=== PATIENT | female | born 2005 | race Two or more races ===

== ENCOUNTER 2024-02-13 14:50 | Outpatient (CLI) | payer OTHER ==
[~2024-02-13] VITALS: Ht 162.6 cm; Wt 62.5 kg
[~2024-02-13 14:50] MED LIST: PRENMIS3 PO; UNIS25TA3 PO
[2024-02-13] MEDS ORDERED: ACET325C5 PO (15:09)
[2024-02-13 15:16] VITALS: BP 110/59
[2024-02-13 16:24] VITALS: BP 111/64
== END 2024-02-13 16:56 | disposition home or self-care (01) ==
LOC: M LDO 14:50
PROVIDERS: ATTEND Advanced Practice Midwife
DX: O36.5939 Maternal care for other known or suspected poor fetal growth, third trimester, other fetus (principal); O41.93X9 Disorder of amniotic fluid and membranes, unspecified, third trimester, other fetus; Z3A.35 35 weeks gestation of pregnancy; Z88.0 Allergy status to penicillin; Z88.1 Allergy status to other antibiotic agents
CPT/HCPCS: 59025; 76811; 76819; 76820; 87081; G0463

== ENCOUNTER 2024-02-22 14:52 | Outpatient (CLI) | payer OTHER ==
[~2024-02-22] VITALS: Ht 162.6 cm; Wt 62.3 kg
[2024-02-22 15:16] VITALS: BP 127/68
[2024-02-22] MEDS ORDERED: HOME MED LIST COMPLETE! XX SCH (15:20)
== END 2024-02-22 18:50 | disposition home or self-care (01) ==
LOC: M LDO 14:52
PROVIDERS: ATTEND Obstetrics & Gynecology
DX: O36.5930 Maternal care for other known or suspected poor fetal growth, third trimester, not applicable or unspecified (principal); O36.8399 Maternal care for abnormalities of the fetal heart rate or rhythm, unspecified trimester, other fetus; Z3A.36 36 weeks gestation of pregnancy; Z88.0 Allergy status to penicillin; Z88.1 Allergy status to other antibiotic agents
CPT/HCPCS: 59025; G0463

== ENCOUNTER → 2024-02-22 | Outpatient (CLI) | payer OTHER ==
[~2024-02-22] MED LIST changes: +ACET325C5 PO
== END ==
LOC: M WHC 12:30
PROVIDERS: ATTEND Advanced Practice Midwife
DX: O36.5930 Maternal care for other known or suspected poor fetal growth, third trimester, not applicable or unspecified (principal); Z3A.36 36 weeks gestation of pregnancy

== ENCOUNTER 2024-02-26 17:12 | Inpatient (IN) | payer OTHER ==
[~2024-02-26] VITALS: Ht 162.6 cm; Wt 62.4 kg
[2024-02-26] MEDS ORDERED: HOME MED LIST COMPLETE! XX SCH (17:40)
[2024-02-26 18:11] VITALS: BP 112/55
[2024-02-26 18:55] LABS: HEMATOCRIT 34.6 % (36.0-47.0); HEMOGLOBIN 11.5 g/dl (12.0-15.5); MEAN CORPUSCULAR HGB CONC 33.2 g/dl (32.0-36.5); MEAN CORPUSCULAR VOLUME 90.3 fl (80.0-96.0); PLATELET COUNT, AUTOMATED 283 10^3/uL (150-450); RED BLOOD COUNT 3.83 10^6/uL (4.00-5.40); WHITE BLOOD COUNT 13.2 10^3/uL (4.0-10.0)
[2024-02-26] MEDS ORDERED: LIDOCAINE 1% MDV 20ML VIAL INFIL PRN (18:55)
[2024-02-26] MEDS ORDERED: OXYTOCIN DRIP 30 UNITS in IV 1 EA IV PRN (18:55)
[2024-02-26 19:29] VITALS: BP 111/61
[2024-02-26] MEDS: miSOPROStol 50MCG 1/2 TABLET SL SCH (19:30)
[2024-02-26 19:58] LABS: HEPATITIS C VIRUS ABY INDEX 0.04 INDEX (<0.8)
[2024-02-26 20:32] VITALS: BP 123/71
[2024-02-26 21:35] VITALS: BP 105/54
[2024-02-26 22:47] LABS: GC DNA AMPLIFICATION NEGATIVE (NEGATIVE)
[2024-02-26 22:59] VITALS: BP 103/54
[2024-02-27] VITALS (29 sets, daily range): BP systolic 96–132; BP diastolic 51–99; O2SAT 98
[2024-02-27] MEDS: ACETAMINOPHEN 500 MG TAB PO PRN (10:21)
[2024-02-27] MEDS: LR 1,000 ML IV SCH (12:41)
[2024-02-27] MEDS: OXYTOCIN DRIP 30 UNITS in IV 1 EA IV SCH (12:41)
[2024-02-27] MEDS: PROMETHAZINE 25MG/ML 1ML VIAL IV ONE (12:54)
[2024-02-27] MEDS: BUTORPHANOL 2 MG/ML 1ML VIAL IV ONE (12:54)
[2024-02-27] MEDS: ceFAZolin SOD 2 GM in IV 1 EA IV ONE (14:11)
[2024-02-27] MEDS ORDERED: ePHEDrine SULFATE 25 MG/5 ML(5MG/ML) SYRINGE IVP PRN (16:10)
[2024-02-27] MEDS ORDERED: diphenhydrAMINE 50MG/ML VIAL IV PRN (16:10)
[2024-02-27] MEDS ORDERED: ONDANSETRON 4MG 2ML VIAL IV PRN (16:10)
[2024-02-27] MEDS ORDERED: LR 500 ML IV PRN (16:10)
[2024-02-27] MEDS ORDERED: NALOXONE INJ 0.4MG/1ML VIAL IV PRN (16:10)
[2024-02-27] MEDS ORDERED: EPIDURAL/PCA KEYS XX PRN (16:10)
[2024-02-27] MEDS: FENTANYL/ROPIVACAINE/NACL BAG 100 ML EPIDURAL SCH (17:46)
[2024-02-27] MEDS ORDERED: DOCUSATE SODIUM 100MG CAPSULE PO PRN (20:00)
[2024-02-27] MEDS ORDERED: IBUPROFEN 600MG TAB PO PRN (20:00)
[2024-02-27] MEDS ORDERED: RHO(D) IMMUNE GLOBULIN/MALTOSE 500MCG(2500IU)/2.2ML VIAL (WINRHO) IM SCH (20:00)
[2024-02-27] MEDS ORDERED: DIBUCAINE 1% OINTMENT 30GM TOP PRN (20:00)
[2024-02-27] MEDS ORDERED: METHYLERGONOVINE MALEATE 0.2 MG TAB PO PRN (20:00)
[2024-02-27] MEDS ORDERED: ceFAZolin SOD 1 GM in D5W MINI-BAG PLUS 50 ML IV SCH (22:00)
[2024-02-28 06:00] VITALS: BP 105/60; O2SAT 99
[2024-02-28] MEDS: PRENATAL VITAMINS CHEWABLE TABLET PO SCH (09:00)
[2024-02-28 18:00] VITALS: BP 116/65; O2SAT 98
[2024-02-28] MEDS: IBUPROFEN 800 MG TAB PO PRN (21:16)
[2024-02-29 06:00] VITALS: BP 124/78; O2SAT 99
[2024-02-29] MEDS ORDERED: MEASLES,MUMPS,RUBELLA VACCINE INJ (MMR-II) SC.IMMUN ONE (09:00)
== END 2024-02-29 18:20 | disposition home or self-care (01) | DRG 560 ==
LOC: M LDI 17:12 → M OBS 02-27 22:10
PROVIDERS: ADMIT Specialist; ATTEND Specialist
PROC: 3E0P7VZ Introduction of Hormone into Female Reproductive, Via Natural or Artificial Opening (ICD-10-PCS; 2024-02-26)
PROC: 3E033VJ Introduction of Other Hormone into Peripheral Vein, Percutaneous Approach (ICD-10-PCS; 2024-02-26)
PROC: 10E0XZZ Delivery of Products of Conception, External Approach (ICD-10-PCS; principal; 2024-02-27)
DX: O41.03X0 Oligohydramnios, third trimester, not applicable or unspecified (principal); O99.824 Streptococcus B carrier state complicating childbirth; Z37.0 Single live birth; Z3A.37 37 weeks gestation of pregnancy; O36.5990 Maternal care for other known or suspected poor fetal growth, unspecified trimester, not applicable or unspecified